=== PATIENT | male | born 1945 | race Caucasian/White ===

== ENCOUNTER 2019-08-20 15:35 | Emergency (ER) | payer OTHER ==
[~2019-08-20] VITALS: Ht 167.6 cm; Wt 88.5 kg
[2019-08-20] MEDS ORDERED: PRINIVIL10 MG PO (15:46)
[2019-08-20 18:03] VITALS: BP 147/72
== END 2019-08-20 17:55 | disposition home or self-care (01) ==
LOC: ER 15:35
DX: S63.283A Dislocation of proximal interphalangeal joint of left middle finger, initial encounter (principal); S01.112A Laceration without foreign body of left eyelid and periocular area, initial encounter; I10 Essential (primary) hypertension; W01.0XXA Fall on same level from slipping, tripping and stumbling without subsequent striking against object, initial encounter; Y93.01 Activity, walking, marching and hiking; Y92.481 Parking lot as the place of occurrence of the external cause; Y99.8 Other external cause status